=== PATIENT | male | born 1980 | race Caucasian/White ===

== ENCOUNTER 2019-02-02 11:07 | Emergency (ER) | payer OTHER ==
[2019-02-02 11:35] VITALS: BP 119/92
--- NOTE | 2019-02-02 13:03 | ED Physician Documentation ---
History of Present Illness - Stated complaint Stated Complaint: FLU LIKE SYMPTOMS - Chief complaint Chief Complaint: General - History obtained from History obtained from: Patient - History of Present Illness Timing: How many days ago (3-4) Pain level max: 3 Pain level now: 2 - Additonal information Additional information: 38-year-old male has been sick for the past 3-4 days. Rhinorrhea, congestion, coughing. States symptoms worsened last night and is very weak this morning. He is feeling better now after eating. Fevers and chills last night. Nothing makes it better or worse. Review of Systems Constitutional: reports: Fever, Chills Nose: reports: Rhinorrhea / runny nose, Congestion Throat: reports: Sore throat Cardiac: denies: Chest pain / pressure Respiratory: reports: Cough GI: denies: Vomiting Skin: denies: Rash Musculoskeletal: denies: Neck pain, Back pain Neurologic: denies: Headache PD PAST MEDICAL HISTORY - Past Medical History Past Medical History: No - Past Surgical History Past Surgical History: No - Present Medications Home Medications: Ambulatory Orders Medication Instructions Recorded Confirmed oxyCODONE/ACET 5/325 [Percocet 5 1 - 2 each PO Q6H PRN #10 tablet 10/27/16 mg/325 mg] Benzonatate [Tessalon Perle] 100 - 200 mg PO TID PRN #30 capsule 02/02/19 Cetirizine HCl/Pseudoephedrine 1 each PO BID PRN #30 tab.er.12h 02/02/19 [Zyrtec-D Tablet] Ibuprofen [Motrin] 800 mg PO Q8H PRN #30 tablet 02/02/19 - Allergies Allergies/Adverse Reactions: Allergies Allergy/AdvReac Type Severity Reaction Status Date / Time No Known Drug Allergies Allergy Verified 10/27/16 00:59 - Social History Does the pt smoke?: No Smoking Status: Never smoker Does the pt drink ETOH?: Yes Does the pt have substance abuse?: No - Immunizations Immunizations are current?: Yes - POLST Patient has POLST: No PD ED PE NORMAL - Vitals Vital signs reviewed: Yes - General General: Alert and oriented X 3, No acute distress - HEENT HEENT: Ears normal, Moist mucous membranes, Pharynx benign - Neck Neck: Supple, no meningeal sign - Cardiac Cardiac: RRR - Respiratory Respiratory: No respiratory distress, Other (Rhonchi left lower lobe) - Abdomen Abdomen: Soft, Non tender, Non distended - Derm Derm: Warm and dry, No rash - Extremities Extremities: No edema, No calf tenderness / cord - Neuro Neuro: Alert and oriented X 3 - Psych Psych: Normal mood, Normal affect Results - Vitals Vitals: Vital Signs - 24 hr 02/02/19 11:31 Temperature 36.9 C Heart Rate 83 Respiratory 18 Rate Blood Pressure 119/92 H O2 Saturation 99 Oxygen O2 Source Room air - Labs Labs: Laboratory Tests 02/02/19 11:35 Influenza A (Rapid) Negative Influenza B (Rapid) Negative - Rads (name of study) cxr Radiology: Prelim report reviewed, EMP read contemporaneously, See rad report (No acute abnormality) PD MEDICAL DECISION MAKING - ED course Complexity details: reviewed results, re-evaluated patient, considered differential, d/w patient, d/w family ED course: 38-year-old male presents the emergency department what appears to be a viral syndrome. Negative flu swab. Negative chest x-ray. Will continue supportive care and follow-up with his PCP. He is well-appearing, nontoxic. Afebrile here. No hypoxia or respiratory distress. Patient and family counseled regarding signs and symptoms for which I believe and urgent re-evaluation would be necessary. Patient with good understanding of and agreement to plan and is comfortable going home at this time This document was made in part using voice recognition software. While efforts are made to proofread this document, sound alike and grammatical errors may occur. Departure - Departure Disposition: 01 Home, Self Care Clinical Impression: Viral syndrome Condition: Good Instructions: ED Viral Syndrome Follow-Up: your,doctor in 1 week [Other] Prescriptions: Benzonatate [Tessalon Perle] 100 - 200 mg PO TID PRN #30 capsule PRN Reason: Cough Cetirizine HCl/Pseudoephedrine [Zyrtec-D Tablet] 1 each PO BID PRN #30 tab.er.12h PRN Reason: nasal congestion Ibuprofen [Motrin] 800 mg PO Q8H PRN #30 tablet PRN Reason: PAIN &/OR FEVER Comments: Your influenza test is negative. Your chest x-ray is normal. This appears to be a viral syndrome. Follow-up closely with your doctor for further care. Return if you worsen. Drink plenty of fluids and rest. Forms: Activity restrictions Discharge Date/Time: 02/02/19 13:42
--- NOTE | 2019-02-02 13:25 | XRAY Report ---
Reason: fever, cough Procedure Date: 02/02/2019 Accession Number: [id number] / [id number] Procedure: XR - Chest 2 View X-Ray CPT Code: 72690 FULL RESULT: EXAM: CHEST RADIOGRAPHY EXAM DATE: 02/02/2019 01:11 PM. CLINICAL HISTORY: Fever, cough. COMPARISON: None. TECHNIQUE: 2 views. FINDINGS: Lungs/Pleura: No focal opacities evident. No pleural effusion. No pneumothorax. Normal volumes. Mediastinum: Heart and mediastinal contours are unremarkable. Other: None. IMPRESSION: Normal 2-view chest radiography. [facility]
== END 2019-02-02 13:42 | disposition home or self-care (01) ==
LOC: ED 11:07
DX: B34.9 Viral infection, unspecified (principal)
CPT/HCPCS: 71046; 87275; 87276; 99283